=== PATIENT | male | born 1955 | race Caucasian/White ===

== ENCOUNTER 2023-06-06 16:05 | Emergency (ER) | payer MEDICARE, OTHER ==
[2023-06-06] MEDS ORDERED: Famotidine 20 MG/2 ML SDV IVPUSH ONE (16:19)
[2023-06-06] MEDS ORDERED: methylPREDNISolone Sodium Succinate 40 MG/1 ML SDV IVPUSH ONE (16:19)
[2023-06-06] MEDS ORDERED: Sodium Chloride 0.9% 10 ML Syringe FLUSH PRN (16:20)
[2023-06-06 17:34] VITALS: BP 115/75; PULSE 82
== END 2023-06-06 17:10 | disposition home or self-care (01) ==
LOC: LB.ED 16:05
DX: T78.40XA Allergy, unspecified, initial encounter (principal); Z79.01 Long term (current) use of anticoagulants; Z79.899 Other long term (current) drug therapy
CPT/HCPCS: 96374; 96375; 99282; 99283-25; J2920; J3490